=== PATIENT | female | born 1995 | race Caucasian/White ===

== ENCOUNTER 2016-12-16 22:11 | Emergency (ER) | payer OTHER ==
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
[2016-12-16] MEDS ORDERED: FLEXERIL10 MG (22:31)
== END 2016-12-17 | disposition home or self-care (01) ==
LOC: SED 22:11
DX: S09.90XA Unspecified injury of head, initial encounter (principal); S16.1XXA Strain of muscle, fascia and tendon at neck level, initial encounter; S39.012A Strain of muscle, fascia and tendon of lower back, initial encounter; V49.60XA Unspecified car occupant injured in collision with unspecified motor vehicles in traffic accident, initial encounter; Y92.9 Unspecified place or not applicable
CPT/HCPCS: 70450; 72100; 72125; 99284